=== PATIENT | female | born 1965 | race Caucasian/White ===

== ENCOUNTER 2024-08-08 11:39 | Emergency (ER) | payer OTHER ==
--- NOTE | 2024-08-08 12:48 | EDPHYS ---
Physician Documentation [facility] Name: Mavis Caicedo Age: 59 yrs Sex: Female : 1965 Arrival Date: 08/08/2024 Time: 11:39 Bed 10 Private MD: ED Physician Lin Emanuel HPI: 08/08 12:47 This 59 yrs old Female presents to ER via Ambulatory with complaints of Fall gb1 Injury, Feet numbness. Historical: - Allergies: 12:00 Codeine; iw - PMHx: 12:00 Anxiety; joint pain; Hypertensive disorder; iw - PSHx: 12:00 knee replacement; iw 12:01 Cholecystectomy; Appendectomy; iw - Immunization history:: Adult Immunizations up to date. - Infectious Disease History:: Denies. - Social history:: Smoking status: Patient denies any tobacco usage or history of. Exam: 12:47 Constitutional: This is a well developed, well nourished patient who is awake, alert, gb1 and in no acute distress. Head/Face: Normocephalic, atraumatic. Eyes: Pupils equal round and reactive to light, extra-ocular motions intact. Lids and lashes normal. Conjunctiva and sclera are non-icteric and not injected. Cornea within normal limits. Periorbital areas with no swelling, redness, or edema. ENT: Nares patent. No nasal discharge, no septal abnormalities noted. Tympanic membranes are normal and external auditory canals are clear. Oropharynx with no redness, swelling, or masses, exudates, or evidence of obstruction, uvula midline. Mucous membranes moist. Neck: Trachea midline, no thyromegaly or masses palpated, and no cervical lymphadenopathy. Supple, full range of motion without nuchal rigidity, or vertebral point tenderness. No Meningismus. Chest/axilla: Normal chest wall appearance and motion. Nontender with no deformity. No lesions are appreciated. Cardiovascular: Regular rate and rhythm with a normal S1 and S2. No gallops, murmurs, or rubs. Normal PMI, no JVD. No pulse deficits. Respiratory: Lungs have equal breath sounds bilaterally, clear to auscultation and percussion. No rales, rhonchi or wheezes noted. No increased work of breathing, no retractions or nasal flaring. Abdomen/GI: Soft, non-tender, with normal bowel sounds. No distension or tympany. No guarding or rebound. No evidence of tenderness throughout. Back: No spinal tenderness. No costovertebral tenderness. Full range of motion. Skin: Warm, dry with normal turgor. Normal color with no rashes, no lesions, and no evidence of cellulitis. MS/ Extremity: Pulses equal, no cyanosis. Neurovascular intact. Full, normal range of motion. Vital Signs: 11:59 BP 175 / 102; Pulse 81; Resp 16; Temp 98; Pulse Ox 100% on R/A; Weight 90.26 kg; Height iw 5 ft. 0 in. ; Pain 10/10; 11:59 Body Mass Index 38.86 (90.26 kg, 152.4 cm) iw 11:59 Pain Scale: Adult iw MDM: 12:17 Medical Screening Exam initiated gb1 12:47 Data reviewed: vital signs, nurses notes. ED course: 59-year-old female with gb1 a ground-level fall 3 weeks ago here with back pain when she bends over and chronic knee pain bilaterally status post total left and right knee replacements. Patient has history of joint pain and is set to follow-up with her orthopedic surgeon of record. She has some radiculopathy that is been chronic and was recent start on gabapentin. Patient requesting narcotics for her chronic back pain which at this time I did explain to her that it would not be first-line for treating her chronic pain and that I would refer to orthopedic and possible pain management for the management of her chronic pain syndrome. Patient is understanding and refused today [place] by mouth or Toradol intramuscularly. Patient states that she will just follow-up with her primary care doctor and thanked me for the encounter. Administered Medications: No medications were administered Disposition Summary: 08/08/24 12:47 Discharge Ordered Notes: Location: Home gb1 Condition: Stable gb1 Problem: an ongoing problem gb1 Symptoms: have improved gb1 Diagnosis - Radiculopathy, lumbar region gb1 Followup: gb1 - With: Private Physician - When: - Reason: Further diagnostic work-up, Continuance of care Discharge Instructions: - Discharge Summary Sheet gb1 - Lumbosacral Radiculopathy gb1 Forms: - Medication Reconciliation Form gb1 - Antibiotic Education gb1 - Prescription Opioid Use gb1 - Patient Portal Instructions gb1 - Leadership Thank You Letter gb1 Signatures: Danisha Bear, RN RN Lin Hartman MD MD gb1
--- NOTE | 2024-08-08 12:48 | ER ---
Nurse's Notes [facility] Name: Mavis Caicedo Age: 59 yrs Sex: Female : 1965 Arrival Date: 08/08/2024 Time: 11:39 Bed 10 Private MD: Diagnosis: Radiculopathy, lumbar region Presentation: 08/08 11:58 Chief complaint: Patient states: fell three weeks ago, she fell straight on her back iw from standing. she has chronic intermittent numbness in her feet and legs. now has lower back pain radiating around to the front ribs, it feels like a broken rib. 11:58 Acuity: SAL 3 iw 11:59 Coronavirus screen: At this time, the client does not indicate any symptoms associated iw with coronavirus-19. Ebola Screen: No symptoms or risks identified at this time. Initial Sepsis Screen: Does the patient meet any 2 criteria? No. Patient's initial sepsis screen is negative. Does the patient have a suspected source of infection? No. Patient's initial sepsis screen is negative. Risk Assessment: Do you want to hurt yourself or someone else? Patient reports no desire to harm self or others. Onset of symptoms was July 24, 2024. 11:59 Method Of Arrival: Ambulatory iw Historical: - Allergies: 12:00 Codeine; iw - PMHx: 12:00 Anxiety; joint pain; Hypertensive disorder; iw - PSHx: 12:00 knee replacement; iw 12:01 Cholecystectomy; Appendectomy; iw - Immunization history:: Adult Immunizations up to date. - Infectious Disease History:: Denies. - Social history:: Smoking status: Patient denies any tobacco usage or history of. Screenin:47 [facility] ED Fall Risk Assessment (Adult) History of falling in the last 3 months, ll1 including since admission Yes- single mechanical fall (1 pt) Confusion or Disorientation No (0 pts) Intoxicated or Sedated No (0 pts) Impaired Gait Yes (1 pt) Mobility Assist Device Used Yes (1 pt) Altered Elimination No (0 pt) Score/Fall Risk Level 3 or more points = High Risk Maintained a safe environment, Hourly rounding (assess needs \T\ fall precautionary measures) done, Used ambulatory aids as needed (educated on \T\ assisted with). Abuse screen: Denies threats or abuse. Nutritional screening: No deficits noted. Tuberculosis screening: No symptoms or risk factors identified. Assessment: 12:40 General: Appears uncomfortable, Behavior is calm, cooperative, appropriate for age. ll1 Pain: Complains of pain in back Quality of pain is described as aching. Musculoskeletal: Reports numbness in right foot and left foot pain in back. Vital Signs: 11:59 BP 175 / 102; Pulse 81; Resp 16; Temp 98; Pulse Ox 100% on R/A; Weight 90.26 kg; Height iw 5 ft. 0 in. ; Pain 10/10; 11:59 Body Mass Index 38.86 (90.26 kg, 152.4 cm) iw 11:59 Pain Scale: Adult iw ED Course: 11:45 Patient arrived in ED. mr 11:59 Lin Emanuel MD is Attending Physician. gb1 11:59 Triage completed. iw 12:02 Arm band placed on. iw 12:43 Erick Gould RN is Primary Nurse. ll1 12:47 No provider procedures requiring assistance completed. Patient did not have IV access ll1 during this emergency room visit. 12:57 Patient has correct armband on for positive identification. Provided Education on: ll1 return to ED for worsening symptoms. Administered Medications: No medications were administered Medication: 12:57 VIS not applicable for this client. ll1 Outcome: 12:47 Discharge ordered by . gb1 12:47 Discharged to home ambulatory, ll1 12:47 Condition: stable 12:47 Discharge instructions given to patient, Instructed on discharge instructions, follow up and referral plans. Demonstrated understanding of instructions, follow-up care, 12:57 Patient left the ED. ll1 Signatures: Yolanda Rodriguez, Reg Reg Danisha Bear RN RN iw Erick Gould RN RN ll1 Lin Emanuel MD MD gb1 Corrections: (The following items were deleted from the chart) 12:00 11:59 BP 175 / 102; Pulse 81bpm; Resp 16bpm; Pulse Ox 100% RA; Temp 98F; iw iw 12:03 11:58 Chief complaint: Patient states: fell three weeks ago, she fell straight on her iw back from standing. she has chronic intermittent numbness in her feet and legs. now has lower back pain radiating around to the front iw
[2024-08-08 13:10] VITALS: BP 175/102; TEMP 98; O2SAT 100
== END 2024-08-08 12:57 | disposition home or self-care (01) ==
LOC: ER 11:39
DX: M54.16 Radiculopathy, lumbar region (principal)